=== PATIENT | female | born 1950 | race Caucasian/White ===

== ENCOUNTER → 2021-10-16 | Outpatient (CLI) | payer BC ==
[2015-04-04 10:57] VITALS: BP 168/83
[~2021-10-16] MED LIST: ACET325T9 PO; ASPI-482 PO; ATOR40TA PO; CALC-77 PO; CHOL10004 PO; FERR325T14 PO; HYDR-2761 PO; HYDR12.58 PO; LISI1TAB37 PO; NIFE60TA90 PO; OMEP20TA91 PO
== END ==
LOC: SURG 13:41
PROVIDERS: ATTEND Surgery Vascular Surgery
DX: Z01.812 Encounter for preprocedural laboratory examination (principal); Z20.822 Contact with and (suspected) exposure to COVID-19
CPT/HCPCS: U0003

== ENCOUNTER 2021-10-20 05:47 | Inpatient (IN) | payer BC ==
[~2021-10-20] VITALS: Ht 167.6 cm; Wt 65.9 kg
[~2021-10-20 05:47] MED LIST changes: -HYDR-2761 PO
[2021-10-20] MEDS ORDERED: IV RINGERS,LACTATED 1000ML 1,000 ML IV SCH (06:00)
[2021-10-20] MEDS ORDERED: HEPARIN SODIUM 5,000 UNIT in IV RINGERS,LACTATED 500ML 500 ML IRR ONE (06:00)
[2021-10-20] MEDS ORDERED: PROCHLORPERAZINE 10 MG/2 ML VIAL. IVP PRN (06:00)
[2021-10-20] MEDS ORDERED: HYDROmorphone 2 MG/ML INJ. IVP PRN (06:00)
[2021-10-20] MEDS ORDERED: MORPHINE SULFATE 2 MG/ML INJ. IVP PRN (06:00)
[2021-10-20] MEDS ORDERED: fentaNYL PF VIAL 100 MCG/2 ML VIAL IVP PRN ×2 (06:00)
[2021-10-20 06:14] VITALS: BP 145/69
[2021-10-20 06:33] LABS: BASO # 0.1 x10^3/uL (0.0-0.2); BASO % 1 % (0-3); EOS # 0.1 x10^3/uL (0.0-0.7); EOS % 2 % (0-3); HEMATOCRIT 41.8 % (36.0-47.0); HEMOGLOBIN 14.5 g/dL (12.0-15.5); LYMPH # 1.8 x10^3/uL (1.0-4.8); LYMPH % 21 % (24-48); MEAN CORPUSCULAR HEMOGLOBIN 32 pg (25-35); MEAN CORPUSCULAR HGB CONC 35 g/dL (31-37); MEAN CORPUSCULAR VOLUME 92 fL (79-100); MONO # 0.7 x10^3/uL (0.0-1.1); MONO % 8 % (0-9); NEUT # 6.1 x10^3/uL (1.8-7.7); NEUT % 69 % (31-73); PLATELET COUNT 421 x10^3/uL (140-400); RED BLOOD COUNT 4.54 x10^6/uL (3.50-5.40); RED CELL DISTRIBUTION WIDTH 12.3 % (11.5-14.5); WHITE BLOOD COUNT 8.9 x10^3/uL (4.0-11.0)
[2021-10-20] MEDS ORDERED: PHENYLEPHRINE 10 MG/ML VIAL. ONE (06:44)
[2021-10-20 06:51] LABS: CALCIUM 9.3 mg/dL (8.5-10.1); CREATININE 0.9 mg/dL (0.6-1.0); GFR 61.7; POTASSIUM 3.5 mmol/L (3.5-5.1)
[2021-10-20] MEDS ORDERED: SURGICEL FIBRILLAR 1X2 EACH. ONE (06:58)
[2021-10-20] MEDS ORDERED: BUPIVACAINE-EPI 0.25% 30 ML VIAL KIT. ONE (06:58)
[2021-10-20] MEDS ORDERED: PROTAMINE 50 MG/5 ML VIAL. IV ONE (06:59)
[2021-10-20] MEDS ORDERED: MIDAZOLAM HCL/PF 2 MG/2 ML VIAL. ONE (07:05)
[2021-10-20] MEDS ORDERED: ROPIVacaine 0.5% PF 20 ML VIAL. ONE (07:05)
[2021-10-20] MEDS ORDERED: fentaNYL PF VIAL 100 MCG/2 ML VIAL ONE (08:03)
[2021-10-20] MEDS: CHOLECALCIFEROL (VITAMIN D3) 1,000 UNIT TABLET PO SCH ×2 (08:19→09:00)
[2021-10-20] MEDS ORDERED: hydrALAZINE 20 MG/ML VIAL. IVP PRN (08:30)
[2021-10-20] MEDS ORDERED: MORPHINE SULFATE 2 MG/ML INJ. IV PRN (08:30)
[2021-10-20] MEDS ORDERED: LABETALOL 20 MG/4 ML DISP.SYRIN. IVP PRN (08:30)
[2021-10-20] MEDS ORDERED: 0.9 % SODIUM CHLORIDE 10 ML DISP.SYRIN. IV PRN (08:30)
[2021-10-20] MEDS ORDERED: HYDROcodone/APAP 5/325MG 1 TAB TABLET PO PRN ×2 (08:30)
[2021-10-20] MEDS ORDERED: IV NORMAL SALINE 1000ML BAG 1,000 ML IV SCH (08:30)
[2021-10-20] MEDS ORDERED: ACETAMINOPHEN 325 MG TABLET. PO PRN (08:30)
[2021-10-20] MEDS ORDERED: HYDR-2761 PO (08:31)
[2021-10-20] MEDS ORDERED: ePHEDrine PF IN SALINE 50 MG/10 ML SYRINGE. IV ONE (08:31)
--- NOTE | 2021-10-20 08:33 | DISCH ---
DISCHARGE INSTRUCTIONS Condition on Discharge Condition on Discharge: Stable Activity After Discharge Activity Instructions for Disc: Activity as tolerated Bathing Instructions: Shower-keep dressing dry (may shower in 2 days, pat incision dry) Lifting Instructions after Dis: No heavy lifting Diet after Discharge Diet after Discharge: Cardiac Contacting the DRChloe after DC Call your doctor for: If your condition worsens RITA DENG APRN October 20, 2021 08:33
[2021-10-20] MEDS: ASPIRIN ENTERIC COATED 81 MG TABLET.DR. PO SCH (09:00)
--- NOTE | 2021-10-20 09:20 | PDOC4 ---
OPERATIVE NOTE Date: Date: October 20, 2021 Pre-Op Diagnosis: Critical left carotid stenosis 80% Stroke prevention Post-Op Diagnosis: Critical left carotid stenosis asymptomatic stroke prevention Procedure Performed: Left carotid endarterectomy with patch angioplasty closure Surgeon: Colby Zhang MD Vascular sealing and canceling machine operator: Marisabel Nation MD --vascular surgery --this is a difficult procedure in an elderly woman with medical problems, a secretary administrative assistant was necessary for successful exposure, endarterectomy, repair of the artery etc. In general carotid arterectomy is not well-suited to single surgeon single plating technician performance, this hospital has no residents available for secretary administrative assistant Anesthesia Type: Left cervical block with MAC Blood Loss: 20 cc maximum Specimans Obtained: None Findings: 1. Critical left carotid stenosis #2 patient tolerated clamping with no neurologic changes therefore no shunt was used Successful carotid arterectomy via longitudinal arteriotomy with bovine pericardial patch angioplasty closure Patient did well throughout no neurologic sequela at the end of the procedure Complications: None Operative Note: Patient was seen in the preoperative area. Here the left neck was marked and cervical block on the left side as well as an arterial line were placed by anesthesia. Patient was escorted to the operating room and placed supine on the table. With appropriate padding in place the left neck was examined with ultrasound and the carotid bifurcation was marked on the neck. The appropriate superficial landmarks were marked with a skin marker. The left neck was prepped and draped in usual sterile fashion and sedation was induced. A timeout was performed. Attention was directed to left neck where a longitudinal incision was made along the anterior border the sternocleidomastoid muscle. This was carried down with Bovie cautery through the platysma until the sternocleidomastoid muscle was identified. We kept dissection in the avascular plane just anterior to the SCM and identified the jugular vein. We kept dissection on the anterior medial portion of this jugular vein and quickly completely freed this up and identify the facial vein crossing the carotid bifurcation. We gave extra local anesthetic as needed throughout this. Patient was given intravenous heparin and on the lower portion incision the common carotid artery was dissected free and controlled with vessel loop. We took care to identify the vagus nerve and avoid injuring this. The facial vein was then completely isolated and ligated proximally distally with ties and clips and then divided between these. This exposed to the carotid bifurcation and we initially left this area alone. The distal internal carotid artery within the incision was dissected free and a soft spot amenable to clamping was palpated against a right angle clamp. This area was controlled with a loosely placed Vesseloops. At this point neurologic exam was normal and the patient's heparin had given adequate time for circulation. A small atraumatic bulldog clamp was used to occlude the ICA well above the area of disease. Neurologic exam showed there was no changes and the patient ayaz ated clamping well. We then carefully dissected out the external carotid artery and superior thyroid artery and controlled these with a vessel loop and a tie it respectively. The common carotid artery and external carotid artery were occluded. Neurologic checks again showed no changes and so the artery was opened longitudinally from the distal common carotid artery across the ball up onto the internal carotid artery past the area of disease using a #11 scalpel and then Barrios angled scissors. The lumen was irrigated and then a Bath endarterectomy spatula was used to remove all the plaque in the standard endarterectomy fashion. The plaque was cut flush at the common carotid artery, everted from the external carotid artery, and further down to a nice endpoint at the internal carotid artery. After the plaque was all removed wound was again irrigated and cleared of all debris. Again, throughout this process, repeat neurologic exam showed no changes and the patient tolerated the clamping well. Once were happy with endarterectomy the bovine pericardial patch was brought to the field. This was kept in appropriate orientation and then used to repair the longitudinal arteriotomy in the standard patch angioplasty fashion using a running 6-0 Prolene on the internal carotid artery and 5-0 Prolene on the common carotid artery. Just prior to completion of the repair the vessels were backbl ed, forward flushed, and irrigated with heparinized saline. The repair was completed and normal forward flow was returned to the external carotid artery and then after several heartbeats to the internal carotid artery. Patient tolerated this well with no neurologic sequela on revascularization. Hand-held continuous-wave Doppler showed good flow in the ICA and ECA. Protamine was used to reverse the heparin and the entire operative field was examined and found to have excellent hemostasis. Some Surgicel was packed around the artery and then the wound was closed. The wound was closed with deep 2-0 Vicryl for the platysma, followed by running subdermal 3-0 Vicryl and subcuticular 4-0 Vicryl. The neck was cleaned and dried and a sterile dressing was placed over the incision. The patient was escorted to recovery in stable condition. I examined her there and she had symmetric hearing face midline tongue awake and alert normal conversation strong note taker bilaterally no evidence of neurologic sequela from the procedure. She tolerated the procedure well throughout and at the end of the case all sponge, needle, and instrument counts were reported to me as correct x2. SHANNON ZHANG MD October 20, 2021 09:20
[2021-10-20] MEDS ORDERED: BENZOCAINE/MENTHOL LOZENGE. PO PRN (09:30)
--- NOTE | 2021-10-20 09:35 | PDOC ---
Provider Note Date of Service: DATE: 10/20/21 TIME: 09:31 Provider Note Pt seen and examined in the PACU s/p LEFT CEA She is awake and alert, only c/o is a mild sore throat She denies any ALFONSO, SOB, CP, etc VSS Face symmetric x very mild ipsilateral (left) lip droop likely from block (not a stroke as on same side) tongue midline speech clear and strong, excellent phonation normal diction strong fats and oils loader bilateral hands moves toes to request Doing well continue care plan Justifications for Admission Other Justification SHANNON ZHANG MD October 20, 2021 09:34
[2021-10-20] MEDS: ONDANSETRON PF 4 MG/2 ML VIAL. IVP PRN (11:25)
[2021-10-20] MEDS: MORPHINE SULFATE 2 MG/ML INJ. IV PRN (11:44)
[2021-10-20 15:00] VITALS: BP 129/61
[2021-10-20] MEDS: PROCHLORPERAZINE 10 MG/2 ML VIAL. IV PRN (16:54)
[2021-10-20 19:37] VITALS: BP 106/56
[2021-10-20] MEDS ORDERED: ATORVASTATIN CALCIUM 40 MG TABLET. PO SCH (21:00)
[2021-10-20 23:20] VITALS: BP 110/62
[2021-10-21] MEDS: MORPHINE SULFATE 2 MG/ML INJ. IV PRN (00:34)
[2021-10-21] MEDS: ONDANSETRON PF 4 MG/2 ML VIAL. IVP PRN (00:43)
[2021-10-21 03:50] VITALS: BP 145/63
[2021-10-21] MEDS: PROCHLORPERAZINE 10 MG/2 ML VIAL. IV PRN (04:23)
[2021-10-21 07:00] VITALS: BP 143/72
[2021-10-21] MEDS: ASPIRIN ENTERIC COATED 81 MG TABLET.DR. PO SCH (08:44)
[2021-10-21] MEDS: CHOLECALCIFEROL (VITAMIN D3) 1,000 UNIT TABLET PO SCH (08:44)
[2021-10-21 11:00] VITALS: BP 150/72
--- NOTE | 2021-10-21 11:35 | NUR ---
ISLAND DRESSING REMOVED FROM LEFT SIDE OF PATIENTS' NECK PER DR. SEVILLA' NURSE PRACTIONER, STERI STRIPS INTACT, NO DRAINAGE NOTICED, PATIENT DENIES PAIN, DISCOMFORT, PATIENT INFORMED TO RETURN TO OFFICE ON November FOR FOLLOW UP APPOINTMENT.
--- NOTE | 2021-10-21 12:23 | PDOC ---
Provider Note Date of Service: DATE: 10/21/21 TIME: 12:17 Provider Note Provider Note Vascular S: Patient complains of "sore throat". Minimal incisional pain. No new TIA or stroke like symptoms. O: Awake and alert VSS, afebrile SBP 140-150 O2 Sat 95% on RA Left neck incision is dry and intact, trachea midline, no hematoma or swelling. Size Mixer equal speech clear, no facial asymmetry. Moving all extremities. A/P: POD #1 Left CEA Doing well Will plan for discharge later today if patient is able to ambulate in halls. Give home hypertensive meds prior to discharge. Justicifation of Admission Dx: Justifications for Admission: Justification of Admission Dx: Yes RITA DENG CASH ROOM CLERK October 21, 2021 12:23
--- NOTE | 2021-10-21 12:25 | DISCH ---
DISCHARGE INSTRUCTIONS Condition on Discharge Condition on Discharge: Stable Activity After Discharge Activity Instructions for Disc: Activity as tolerated Bathing Instructions: Shower-keep dressing dry (may shower in 2 days, pat incision dry) Lifting Instructions after Dis: No heavy lifting Diet after Discharge Diet after Discharge: Cardiac Contacting the DR. after DC Call your doctor for: If your condition worsens RITA DENG APRN October 21, 2021 12:25
--- NOTE | 2021-10-21 12:35 | NUR ---
PATIENT AMBULATES IN THE HALLWAY ALONGSIDE THIS NURSE AROUND THE NURSES STATION AND BACK TO HER ROOM, REMAINED STEADY AND NO SOB NOTICED.
[2021-10-21] MEDS ORDERED: FERROUS SULFATE 325 MG TABLET. PO SCH (13:00)
[2021-10-21] MEDS ORDERED: LISINOPRIL 20 MG TABLET PO SCH (13:00)
[2021-10-21] MEDS ORDERED: hydroCHLOROthiazide 12.5 MG TABLET PO SCH (13:00)
--- NOTE | 2021-10-21 13:38 | NUR ---
DISCHARGE INSTRUCTIONS GIVEN, QUESTIONS AND CONCERNS ANSWERED, PATIENT VERBALIZED UNDERSTANDING OF DISCHARGE INFORMATION INCLUDING TAKING ALL MEDICATIONS INSTRUCTED AND FOLLOWING UP WITH DR. ZHANG AND HER PRIMARY PROVIDER INSTRUCTED.
--- NOTE | 2021-10-21 13:53 | NUR ---
PATIENT LEAVES THE UNIT PER W/C AND ACCOMPANIED BY THIS DRYING AND WINDING SUPERVISOR, EMTIONAL SUPPORT GIVEN, FOLLOW UP APPOINTMENTS ENCOURAGED.
[2021-10-22] MEDS ORDERED: PANTOPRAZOLE 40 MG TABLET.DR. PO SCH (07:30)
== END 2021-10-21 13:40 | disposition home or self-care (01) | DRG 39 ==
LOC: OPSVCIP 05:47 → 6 SOUTH 11:20
PROVIDERS: ADMIT Surgery Vascular Surgery; ATTEND Surgery Vascular Surgery
PROC: 03CL0ZZ Extirpation of Matter from Left Internal Carotid Artery, Open Approach (ICD-10-PCS; 2021-10-20)
PROC: 03CN0ZZ Extirpation of Matter from Left External Carotid Artery, Open Approach (ICD-10-PCS; 2021-10-20)
PROC: 03UN0JZ Supplement Left External Carotid Artery with Synthetic Substitute, Open Approach (ICD-10-PCS; 2021-10-20)
PROC: 03CJ0ZZ Extirpation of Matter from Left Common Carotid Artery, Open Approach (ICD-10-PCS; principal; 2021-10-20 07:30)
DX: I65.22 Occlusion and stenosis of left carotid artery (principal); Z20.822 Contact with and (suspected) exposure to COVID-19; Z79.899 Other long term (current) drug therapy
CPT/HCPCS: 36415; 80048; 85025; A4209; A4223; A4322; A4351; A4364; A4452; A4657; A4930; A6219; A6402; C1768; J0690; J0780; J1644; J2250; J2270; J2370; J2405; J2720; J2795; J3010; J7030; J7040; J7120; G0378